=== PATIENT | male | born 1955 | race Caucasian/White ===

== ENCOUNTER → 2016-10-03 | Day surgery (SDC) | payer BC ==
[~2016-10-03] MED LIST: ACIPHEX20 MG PO; AMARYL PO; ASACOL400 MG PO; DIOVAN HCT 160-1 TAB PO; DIOVAN HCT 3201 EACH PO; DIOVAN HCT 80/11 TAB PO; DIOVAN PO; DULCOLAX; FLOMAX0.4 M1 PO; HUMALOG100 U/ML; HYDROCODONE-APA1 T30 PO; LANTUS100 UNITS/ SUBQ; METAGLIP PO; METFORMIN PO; SIMVASTATIN40 MG PO; STARLIX PO; TRICOR PO; XIGDUO PO; ZESTRIL5 MG PO
--- NOTE | ~2016-10-03 | OR ---
Unit #: [id number] #: [id number] Patient: HETAL FAULKNER [id number] [address] [place], [place] [address] [id number] MR#: [id number] NAME: HETAL FAULKNER. ROOM: Date of Procedure: 10/03/2016 Admission Date: 10/03/2016 Surgeon: Marc Duke M.D. : 1955 Attending Physician: Marc Duke M.D. Primary Care Physician: Coral Polk Aprn OPERATIVE REPORT PRIMARY CARE PHYSICIAN Coral Polk APRN. 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 PROCEDURES PERFORMED Upper gastrointestinal endoscopy and biopsy. POSTOPERATIVE DIAGNOSES 1. Doherty segment of the distal esophagus. This is a short segment of Doherty esophagus with tongues of columnar mucosa ascending above the gastroesophageal junction. 2. Mild prepyloric antral erosive gastritis. 3. Rest of examination up to third part of duodenum was normal. A biopsy was obtained from the antrum for CLOtest and additional biopsies were also obtained from the distal esophageal mucosa to look for any evidence of dysplasia. SEDATION USED MAC. DESCRIPTION OF PROCEDURE Following detailed explanation of the potential risks and complications of upper endoscopy, namely perforation, bleeding, and complication related to sedation, the patient was brought to GI lab and laid in the left lateral decubitus position. Lubricated tip of the Olympus video upper endoscope was passed through the bite block into the proximal esophagus under direct vision. The entire esophageal mucosa was examined. The patient was noted to have evidence of Doherty esophagus in distal esophagus, tongues of columnar mucosa ascending above the gastroesophageal junction. The scope was then advanced into the gastric cavity and the latter was insufflated. Mucosa of the fundus, body, and antrum was examined. The patient was noted to have mild prepyloric antral erythema erosions indicating antral gastritis. Pylorus was intubated visualization the normal duodenal bulb and second and third part of the duodenum. Upon withdrawal and retroflexion, incisura, cardia, and greater curve was examined and a biopsy was obtained from the antrum for CLOtest. The scope was withdrawn the distal esophagus. Multiple biopsies were obtained from the Doherty segment in the distal esophagus and sent for histology. The entire esophageal mucosa was examined all the way up to pharynx. No additional Unit #: [id number] #: [id number] Patient: HETAL FAULKNER findings were noted. The patient tolerated the procedure without any postprocedure complications. Dictated by... Abelardo Arriola TD: 10/03/2016 13:50 JOB #: [id number] CC: Coral Plok Aprn OPERATIVE REPORT Page 1 of 1 X Marc Duke MD X PROCEDURE OPERATIVE NOTE
== END | disposition home or self-care (01) ==
LOC: COPS 07:37
DX: K22.70 Barrett's esophagus without dysplasia (principal); K29.60 Other gastritis without bleeding; E11.9 Type 2 diabetes mellitus without complications; I10 Essential (primary) hypertension; F17.200 Nicotine dependence, unspecified, uncomplicated; Z79.84 Long term (current) use of oral hypoglycemic drugs
CPT/HCPCS: 82947; 87077; 88305; J2250